=== PATIENT | male | born 2000 ===

== ENCOUNTER 2023-04-03 11:33 | Outpatient (AMB) | payer OTHER, MEDICAID, SELFPAY ==
[2023-04-03 11:35] VITALS: BP 131/61; PULSE 93; BMI 31.6
--- NOTE | 2023-04-03 11:35 | A.OFFVIS_ITS ---
Intake Vital Signs 04/03/23 11:35 Height 5 ft 7 in Weight 201 lb 15.095 oz BMI 31.6 BP 131/61 Blood Pressure Location Lt brachial Position Sitting Pulse 93 Intake Visit Reasons: Chronic Constipation Intake Note: Patient presents to in office vsiit today as a new patient for constipation. CC: Patient in the autism spectrum per his mother suffering from constipation since he was about 7 years old. Patient was taking Miralax, but per his mother is no longer working well. She reports noticing patient's abdomen bigger . Patient is non verbal but her mother states that he sometimes look like he is having abdominal pain. She also reports Pt has nausea and occasional vomiting. Denies other GI symptoms. Institution Librarian Required: No Accompanied by: Mother Allergies No Known Allergies Allergy (Verified 04/03/23 11:36) HPI Chronic Constipation HPI Details 22-year-old male here for initial evaluation of chronic constipation. He is referred by [facility]. In [facility]. PMX Autism Acute lymphoblastic leukemia * SURGICAL HISTORY * ALLERGIES: NKDA * LABS: 11/2021 LABS platelets are normal at 253,000 hundred fifty three thousand remainder of the CBC is unremarkable, AST/ALT 59/145 with an alk-phos of 106 and a bilirubin of 0.4, normal sed rate, normal GFR * ULTRASOUND OF THE ABDOMEN 12/2021 Impression -2 GALLBLADDER POLYPS MEASURING UP TO 3 MM. RECOMMEND FOLLOW-UP ULTRASOUND IN 6-12 MONTHS TODAY'S VISIT He is here today with his mother who is his primary workers compensation coordinator. He has suffered CIC since he had chemotherapy for ACL for which he was treated at [facility]. He was on Miralax but it stopped working and he has also failed senna, dulcolax, colace, fiber and lactulose. I will start LInzess 145 and titrate. Also getting XR to evaluate the stool burden and TSH. Mom says he hardly ever passes gas. It is difficult to gauge his discomfort as he is nonverbal but he seems to indicate some discomfort in the abdomen to his mother. He also has a cough that is random. ROV 2 weeks. . [facility] Surgical History History of appendectomy Family History Maternal Grandmother Lung cancer Social History Household Members: Family Household Members Other:: Parents Both parents involved: Yes Alcohol intake: never Patient Tobacco Use Status: Never used Tobacco Review of Systems Const Denies fatigue, Denies fever(s), Denies night sweats, Denies poor appetite and Denies weight loss ENT Reports Normal hearing present, Denies dental pain, Denies dysphagia, Denies hearing loss, Denies mouth pain, Denies odynophagia, Denies throat swelling, Denies tongue swelling and Reports other (Dentition adequate) Card Reports no additional complaints Resp Reports no additional complaints GI Reports abdominal pain, Denies melena, Reports bloating, Denies hematochezia, Reports constipation, Denies GI cramping, Denies dysphagia, Denies excessive flatus, Denies early satiety, Denies heartburn, Denies diarrhea, Reports nausea, Denies odynophagia, Denies vomiting and Denies hematemesis Skin/Breast Denies pruritus, Denies lesions, Denies rash and Denies jaundice Neuro Reports Normal hearing present and Denies Abnormal speech present Endo Denies fatigue Aller/Immun Denies throat swelling and Denies tongue swelling Physical Exam Vital Signs: Last Vital Signs Pulse 93 04/03/23 11:35 BP 131/61 04/03/23 11:35 BMI result Body Mass Index 31.6 Const General: cooperative, no acute distress, well developed and well groomed Nutritional Appearance: well nourished and obese Orientation/consciousness: oriented to person, oriented to place and oriented to time Limitations: No language barrier and other limitations (Autism) HEENT Head: Yes normocephalic and Yes atraumatic Eyes General: appearance normal, both eyes and all related structures Pupils: Equal, round and reactive pupils present Neck Neck: Yes normal visual inspection and Yes no lymphadenopathy Thyroid: Thyroid normal Resp Effort & Inspection: normal respiratory effort and able to speak in complete sentences Auscultation: clear to auscultation bilaterally Cardio Rate: regular rate Rhythm: regular rhythm Heart sounds: Normal, physiologic split S2 sound present Peripheral pulses: radial pulses present and posterior tibial pulses present GI Inspection: Yes distended, No Abdominal panniculus present and Yes obesity Palpation (GI): Soft to palpation, nontender, no guarding, not rigid and No hepatosplenomegaly present Percussion: Yes normal to percussion Auscultation: normal bowel sounds Rectal Exam - Male: Yes deferred Skin General skin exam: no rashes or lesions noted, turgor normal, skin not dry, no jaundice, No spider nevi and no striae Rashes: no rashes Nails: normal Neuro General: oriented to person, oriented to place and oriented to time Cranial nerves: Yes Equal, round and reactive pupils present and Yes Normal hearing present Speech: No Abnormal speech present Extrem General: Yes normal to inspection, No clubbing, No cyanosis and No edema Psych Appearance: grossly normal and well kempt Mental Status: other Speech and movement: Mute speech present Affect: normal affect Attitude: cooperative Thought content: other Insight: Limited insight present (Psych) Judgement: Limited judgement present (Psych) Assessment & Plan Assessment & Plan (1) Chronic idiopathic constipation: Code(s): K59.04 - Chronic idiopathic constipation Plan: He is here today with his mother who is his primary workers compensation coordinator. He has suffered CIC since he had chemotherapy for ACL for which he was treated at [facility]. He was on Miralax but it stopped working and he has also failed senna, dulcolax, colace, fiber and lactulose. I will start LInzess 145 and titrate. Also getting XR to evaluate the stool burden and TSH. Mom says he hardly ever passes gas. It is difficult to gauge his discomfort as he is nonverbal but he seems to indicate some discomfort in the abdomen to his mother. He also has a cough that is random. ROV 2 weeks. (2) Autism: Code(s): F84.0 - Autistic disorder Orders: Orders XR abdomen w decubitus 04/03/23 K59.04 - Chronic idiopathic constipation TSH reflex Free T4 04/03/23 K59.04 - Chronic idiopathic constipation Medications: New linaclotide (Linzess) 145 mcg PO QAM 30 caps 3RF F84.0 - Autistic disorder Coding Level of Care Code New Pt Level 3 (24640) Diagnoses Chronic idiopathic constipation K59.04 Autism F84.0
== END 2023-04-03 12:45 | disposition home or self-care (01) ==
PROVIDERS: PCP Pediatrics; Visit Provider Nurse Practitioner
DX: K59.04 Chronic idiopathic constipation (principal); F84.0 Autistic disorder
CPT/HCPCS: 99203

== ENCOUNTER 2023-04-03 11:33 | Outpatient (REF) | payer OTHER, MEDICAID, SELFPAY ==
--- NOTE | ~2023-04-03 | XR_ITS ---
EXAMINATION: XR ABDOMEN WITH DECUBITUS VIEWS CLINICAL INDICATION: Chronic idiopathic constipation. 13 COMPARISON: None available. TECHNIQUE: 4 views FINDINGS: Moderate fecal retention. 6 mm calcification identified in the region of the left renal upper pole. 2 adjacent calcifications measuring 7 mm in aggregate are identified in the region of the left renal lower pole. Solid visceral outlines within normal limits. Lung bases are clear. XR/XR abdomen w decubitus IMPRESSION: Moderate fecal retention. Likely left renal calcifications.
== END 2023-04-03 11:34 | disposition home or self-care (01) ==
LOC: HO.XRAY 11:33
PROVIDERS: PCP Pediatrics; Visit Provider Nurse Practitioner
DX: K59.04 Chronic idiopathic constipation (principal); F84.0 Autistic disorder
CPT/HCPCS: 74021

== ENCOUNTER 2023-04-17 15:56 | Outpatient (AMB) | payer OTHER, MEDICAID, SELFPAY ==
--- NOTE | 2023-04-17 16:01 | MHC.OFFVIS ---
Intake Vital Signs 04/17/23 16:02 Height 5 ft 7 in Weight 198 lb 6.656 oz BMI 31.1 BP 120/56 L Blood Pressure Location Rt brachial Position Sitting Pulse 92 Intake Visit Reasons: 2 week fu Intake Note: Patient presents to in office vsiit today in follow up of constipation CC: Patient in the autism spectrum non verbal per his mother suffering from constipation since he was about 7 years old. Patient's mother reports that patient has been taking the Linzess and is now having BMs every day and his abdoen seems smaller. Denies any new GI symptoms. Histological Illustrator Required: No Accompanied by: Mother Allergies No Known Allergies Allergy (Verified 04/03/23 11:36) HPI 2 week fu HPI Details He has suffered CIC since he had chemotherapy for ACL for which he was treated at [facility]. He was on Miralax but it stopped working and he has also failed senna, dulcolax, colace, fiber and lactulose. I will start LInzess 145 and titrate. Also getting XR to eval stool burden and TSH. Mom says he hardly ever passes gas. ITis difficult to gauge his discomfort as he is nonverbal but he seems to indicate some discomfort in erika abd to his mother. He also has a cough taht is random. ROV 2 weeks.? ? Assessment & Plan (1) Chronic idiopathic constipation: ?Code(s): K59.04 - Chronic idiopathic constipation (2) Autism: ?Code(s): F84.0 - Autistic disorder ? ? ? Orders: Orders XR abdomen w decub itus Today K59.04 - Chronic i diopathic constipa tion ? TSH reflex Free T4 Today K59.04 - Chronic i diopathic constipa tion ? Medications: New linaclotide (Linze ss) 145 mcg? PO QAM 30 caps 3RF F84.0 - Autistic d isorder ? LABS Thyroid screening not obtained XR ABD 04/10/23 FINDINGS: Moderate fecal retention. 6 mm calcification identified in the region of the left renal upper pole. 2 adjacent calcifications measuring 7 mm in aggregate are identified in the region of the left renal lower pole. Solid visceral outlines within normal limits. Lung bases are clear. XR/XR abdomen w decubitus IMPRESSION: Moderate fecal retention. Likely left renal calcifications. TODAY'S VISIT Her mother feels that the LInzess at the 145mcg Dose is adequate and she says his mood swings are less often and he is sleeping better. Since he has advanced autism, this sounds good. She has trouble getting to see all of his BM's before he flushes, but what she has seen has been on medium consistency. With this we will hold at this dose for now. They did not get the TSH test, but we can hold on this for now. ROV 2 mos. PFSH Surgical History History of appendectomy Family History Maternal Grandmother Lung cancer Social History Household Members: Family Household Members Other:: Parents Both parents involved: Yes Alcohol intake: never Patient Tobacco Use Status: Never used Tobacco Review of Systems Const Denies fatigue, Denies fever(s), Denies night sweats, Denies poor appetite and Denies weight loss ENT Reports Normal hearing present, Denies dental pain, Denies dysphagia, Denies hearing loss, Denies mouth pain, Denies odynophagia, Denies throat swelling, Denies tongue swelling and Reports other (Dentition adequate) Card Reports no additional complaints Resp Reports no additional complaints GI Denies abdominal pain, Denies melena, Reports bloating, Denies hematochezia, Reports constipation, Denies GI cramping, Denies dysphagia, Denies excessive flatus, Denies early satiety, Denies heartburn, Denies diarrhea, Denies nausea, Denies odynophagia, Denies vomiting and Denies hematemesis Skin/Breast Denies pruritus, Denies lesions, Denies rash and Denies jaundice Neuro Reports Normal hearing present and Denies Abnormal speech present Endo Denies fatigue Aller/Immun Denies throat swelling and Denies tongue swelling Physical Exam Vital Signs: Last Vital Signs Pulse 92 04/17/23 16:02 BP 120/56 L 04/17/23 16:02 BMI result Body Mass Index 31.1 Const General: cooperative, no acute distress, well developed and well groomed Nutritional Appearance: well nourished and obese Orientation/consciousness: oriented to person, oriented to place and oriented to time Limitations: behavioral limitations, No language barrier and other limitations HEENT Head: Yes normocephalic and Yes atraumatic Eyes General: appearance normal, both eyes and all related structures Pupils: Equal, round and reactive pupils present Neck Neck: Yes normal visual inspection and Yes no lymphadenopathy Thyroid: Thyroid normal Resp Effort & Inspection: normal respiratory effort and able to speak in complete sentences Auscultation: clear to auscultation bilaterally Cardio Rate: regular rate Rhythm: regular rhythm Heart sounds: Normal, physiologic split S2 sound present Peripheral pulses: radial pulses present and posterior tibial pulses present GI Inspection: No distended, No Abdominal panniculus present and Yes obesity Palpation (GI): Soft to palpation, nontender, no guarding, not rigid and No hepatosplenomegaly present Percussion: Yes normal to percussion Auscultation: normal bowel sounds Rectal Exam - Male: Yes deferred Skin General skin exam: no rashes or lesions noted, turgor normal, skin not dry, no jaundice, No spider nevi and no striae Rashes: no rashes Nails: normal Neuro General: oriented to person, oriented to place and oriented to time Cranial nerves: Yes Equal, round and reactive pupils present and Yes Normal hearing present Speech: No Abnormal speech present Extrem General: Yes normal to inspection, No clubbing, No cyanosis and No edema Psych Appearance: grossly normal and well kempt Mental Status: mental status grossly normal Speech and movement: Normal speech and movement present Affect: normal affect Attitude: cooperative Thought process: Normal thought process present and not confabulating Thought content: Normal thought content present Insight: Limited insight present (Psych) Judgement: Limited judgement present (Psych) Results Reviewed Results Reviewed: LABS Thyroid screening not obtained XR ABD 04/10/23 FINDINGS: Moderate fecal retention. 6 mm calcification identified in the region of the left renal upper pole. 2 adjacent calcifications measuring 7 mm in aggregate are identified in the region of the left renal lower pole. Solid visceral outlines within normal limits. Lung bases are clear. XR/XR abdomen w decubitus IMPRESSION: Moderate fecal retention. Likely left renal calcifications. Assessment & Plan Assessment & Plan (1) Chronic idiopathic constipation: Code(s): K59.04 - Chronic idiopathic constipation Plan: Her mother feels that the LInzess at the 145mcg Dose is adequate and she says his mood swings are less often and he is sleeping better. Since he has advanced autism, this sounds good. She has trouble getting to see all of his BM's before he flushes, but what she has seen has been on medium consistency. With this we will hold at this dose for now. They did not get the TSH test, but we can hold on this for now. ROV 2 mos. Coding Level of Care Code Est Pt Level 3 (27608) Diagnoses Chronic idiopathic constipation K59.04
[2023-04-17 16:02] VITALS: BP 120/56; PULSE 92; BMI 31.1
== END 2023-04-17 16:24 | disposition home or self-care (01) ==
PROVIDERS: PCP Pediatrics; Visit Provider Nurse Practitioner
DX: K59.04 Chronic idiopathic constipation (principal)
CPT/HCPCS: 99213

== ENCOUNTER → 2023-04-17 15:56 | Outpatient (BNVA) | payer OTHER, MEDICAID, SELFPAY | PROVIDERS: PCP Pediatrics; Visit Provider Nurse Practitioner ==

== ENCOUNTER 2023-06-16 15:41 | Outpatient (AMB) | payer OTHER, MEDICAID, SELFPAY ==
--- NOTE | 2023-06-16 15:43 | MHC.OFFVIS ---
Intake Vital Signs 06/16/23 15:44 Height 57 ft Weight 198 lb 13.711 oz BMI 0.3 BP 121/57 L Blood Pressure Location Rt brachial Position Sitting Pulse 88 Intake Visit Reasons: 2 month follow up Intake Note: Patient presents to in office visit today in 2 months follow up of constipation. CC: Patient in the autism spectrum non verbal. Per his mother his abdomen feels hard sometimes. She also reports he sometimes he goes to the [facility] to have a BM but comes out too fast. Washroom Cleaner Required: No Accompanied by: Mother Allergies No Known Allergies Allergy (Verified 06/16/23 15:47) HPI 2 month follow up HPI Details Assessment & Plan (1) Chronic idiopathic constipation: Code(s): K59.04 - Chronic idiopathic constipation Plan: Her mother feels that the LInzess at the 145mcg Dose is adequate and she says his mood swings are less often and he is sleeping better. Since he has advanced autism, this sounds good. She has trouble getting to see all of his BM's before he flushes, but what she has seen has been on medium consistency. With this we will hold at this dose for now. They did not get the TSH test, but we can hold on this for now. ROV 2 mos. TODAY'S VISIT He is here today with his mother who is the main caregiver. He has been a little more constipated since starting school, but still he is much better than he was before started seeing me. This could be because his routine has been upset and he is not drinking as much fluid or he is less willing to use the bathroom while he is at school. Either way I suggest that we just monitor the situation for a while before deciding if it does crease or change in the medication is needed. For now he continues on his Linzess 145 micro g daily. Return office visit in 3 months. [facility] Surgical History History of appendectomy Family History Maternal Grandmother Lung cancer Social History Household Members: Family Household Members Other:: Parents Both parents involved: Yes Alcohol intake: never Patient Tobacco Use Status: Never used Tobacco Review of Systems Const Denies fatigue, Denies fever(s), Denies night sweats, Denies poor appetite and Denies weight loss ENT Reports Normal hearing present, Denies dental pain, Denies dysphagia, Denies hearing loss, Denies mouth pain, Denies odynophagia, Denies throat swelling, Denies tongue swelling and Reports other (Dentition adequate) Card Reports no additional complaints Resp Reports no additional complaints GI Denies abdominal pain, Denies melena, Denies bloating, Denies hematochezia, Reports constipation, Denies GI cramping, Denies dysphagia, Denies excessive flatus, Denies early satiety, Denies heartburn, Denies diarrhea, Denies nausea, Denies odynophagia, Denies vomiting and Denies hematemesis Skin/Breast Denies pruritus, Denies lesions, Denies rash and Denies jaundice Neuro Reports Normal hearing present and Denies Abnormal speech present Endo Denies fatigue Aller/Immun Denies throat swelling and Denies tongue swelling Physical Exam Vital Signs: Last Vital Signs Pulse 88 06/16/23 15:44 BP 121/57 L 06/16/23 15:44 BMI result Body Mass Index 0.3 Const General: cooperative, no acute distress, well developed and well groomed Nutritional Appearance: average body habitus and well nourished Orientation/consciousness: oriented to person, oriented to place and oriented to time Limitations: No language barrier and other limitations HEENT Head: Yes normocephalic and Yes atraumatic Eyes General: appearance normal, both eyes and all related structures Pupils: Equal, round and reactive pupils present Neck Neck: Yes normal visual inspection and Yes no lymphadenopathy Thyroid: Thyroid normal Resp Effort & Inspection: normal respiratory effort and able to speak in complete sentences Auscultation: clear to auscultation bilaterally Cardio Rate: regular rate Rhythm: regular rhythm Heart sounds: Normal, physiologic split S2 sound present Peripheral pulses: radial pulses present and posterior tibial pulses present GI Inspection: No distended and No Abdominal panniculus present Palpation (GI): Soft to palpation, nontender, no guarding, not rigid and No hepatosplenomegaly present Percussion: Yes normal to percussion Auscultation: normal bowel sounds Rectal Exam - Male: Yes deferred Skin General skin exam: no rashes or lesions noted, turgor normal, skin not dry, no jaundice, No spider nevi and no striae Rashes: no rashes Nails: normal Neuro General: oriented to person, oriented to place and oriented to time Cranial nerves: Yes Equal, round and reactive pupils present and Yes Normal hearing present Speech: No Abnormal speech present Extrem General: Yes normal to inspection, No clubbing, No cyanosis and No edema Psych Appearance: grossly normal and well kempt Mental Status: other Speech and movement: Normal speech and movement present Affect: normal affect Attitude: cooperative Thought process: not confabulating and Other thought process findings present Thought content: Normal thought content present Insight: Limited insight present (Psych) Judgement: Limited judgement present (Psych) Assessment & Plan Assessment & Plan (1) Chronic idiopathic constipation: Code(s): K59.04 - Chronic idiopathic constipation Plan: He is here today with his mother who is the main caregiver. He has been a little more constipated since starting school, but still he is much better than he was before started seeing me. This could be because his routine has been upset and he is not drinking as much fluid or he is less willing to use the bathroom while he is at school. Either way I suggest that we just monitor the situation for a while before deciding if it does crease or change in the medication is needed. For now he continues on his Linzess 145 micro g daily. Return office visit in 3 months. (2) Autism: Code(s): F84.0 - Autistic disorder Medications: Refilled linaclotide (Linzess) 145 mcg PO QAM 30 caps 6RF F84.0 - Autistic disorder Coding Level of Care Code Est Pt Level 3 (36939) Diagnoses Chronic idiopathic constipation K59.04 Autism F84.0
[2023-06-16 15:44] VITALS: BP 121/57; PULSE 88
== END 2023-06-16 16:07 | disposition home or self-care (01) ==
PROVIDERS: PCP Pediatrics; Visit Provider Nurse Practitioner
DX: K59.04 Chronic idiopathic constipation (principal); F84.0 Autistic disorder
CPT/HCPCS: 99213

== ENCOUNTER → 2023-06-16 15:41 | Outpatient (BNVA) | payer OTHER, MEDICAID, SELFPAY | PROVIDERS: PCP Pediatrics; Visit Provider Nurse Practitioner ==

== ENCOUNTER 2023-09-16 15:40 | Outpatient (AMB) | payer OTHER, MEDICAID, SELFPAY ==
--- NOTE | 2023-09-16 15:42 | A.OFFVIS_ITS ---
Intake Vital Signs 09/16/23 15:46 Height 5 ft 7 in Weight 202 lb 6.15 oz BMI 31.7 BP 130/62 Blood Pressure Location Lt brachial Position Sitting Pulse 102 H Intake Visit Reasons: 3 month follow up CIC Intake Note: Patient presents to in office visit today in 3 months follow up of CIC. CC: Patient's mother reports that he has been taking his medications and he sometimes has 2 small BMs daily. She states he sometimes point to his abdomen and she is unsure if he is having abdominal discomfort. She also reports she can tell when the patient is backed up because he does not eat his food as fast as usual. Sr. Vendor Management Associate Required: No Accompanied by: Mother Allergies No Known Allergies Allergy (Verified 09/16/23 15:51) HPI 3 month follow up CIC HPI Details Assessment & Plan (1) Chronic idiopathic constipation: Code(s): K59.04 - Chronic idiopathic constipation Plan: He is here today with his mother who is the main caregiver. He has been a little more constipated since starting school, but still he is much better than he was before started seeing me. This could be because his routine has been upset and he is not drinking as much fluid or he is less willing to use the bathroom while he is at school. Either way I suggest that we just monitor the situation for a while before deciding if it does crease or change in the me dication is needed. For now he continues on his Linzess 145 micro g daily. Return office visit in 3 months. (2) Autism: Code(s): F84.0 - Autistic disorder Medications: Refilled linaclotide (Linze ss) 145 mcg PO QAM 30 caps 6RF F84.0 - Autistic d isorder . TODAY'S VISIT He continues to do well on the Linzess 145mg. No longer taking the bisacodyl. On HCTZ, but not yet taking clonidine as his mother was afraid he would get addicted. Educated her that it is a HTN medicine with grogginess that is sometimes used off label for this, but is not addicted. She has questions regarding Frandy not losing weight, and we discuss that more vigorous exercise may be needed. He will be needed an adult PCP soon, as he is followed by pediatrics and the cancer center at [facility] right now. ROV 6 mos. [facility] Surgical History History of appendectomy Family History Maternal Grandmother Lung cancer Social History Household Members: Family Household Members Other:: Parents Both parents involved: Yes Alcohol intake: never Patient Tobacco Use Status: Never used Tobacco Review of Systems Const Denies fatigue, Denies fever(s), Denies night sweats, Denies poor appetite and Denies weight loss ENT Reports Normal hearing present, Denies dental pain, Denies dysphagia, Denies hearing loss, Denies mouth pain, Denies odynophagia, Denies throat swelling, Denies tongue swelling and Reports other (Dentition adequate) Card Reports no additional complaints Resp Reports no additional complaints GI Denies abdominal pain, Denies melena, Denies bloating, Denies hematochezia, Reports constipation, Denies GI cramping, Denies dysphagia, Denies excessive flatus, Denies early satiety, Denies heartburn, Denies diarrhea, Denies nausea, Denies odynophagia, Denies vomiting and Denies hematemesis Skin/Breast Denies pruritus, Denies lesions, Denies rash and Denies jaundice Neuro Reports Normal hearing present and Denies Abnormal speech present Endo Denies fatigue Aller/Immun Denies throat swelling and Denies tongue swelling Physical Exam Vital Signs: Last Vital Signs Pulse 102 H 09/16/23 15:46 BP 130/62 09/16/23 15:46 BMI result Body Mass Index 31.7 Const General: cooperative, no acute distress, well developed and well groomed Nutritional Appearance: well nourished and obese Orientation/consciousness: oriented to person, oriented to place and oriented to time Limitations: No language barrier and other limitations (Autism) HEENT Head: Yes normocephalic and Yes atraumatic Eyes General: appearance normal, both eyes and all related structures Pupils: Equal, round and reactive pupils present Neck Neck: Yes normal visual inspection and Yes no lymphadenopathy Thyroid: Thyroid normal Resp Effort & Inspection: normal respiratory effort and able to speak in complete sentences Auscultation: clear to auscultation bilaterally Cardio Rate: regular rate Rhythm: regular rhythm Heart sounds: Normal, physiologic split S2 sound present Peripheral pulses: radial pulses present and posterior tibial pulses present GI Inspection: No distended, No Abdominal panniculus present and Yes obesity Palpation (GI): Soft to palpation, nontender, no guarding, not rigid and No hepatosplenomegaly present Percussion: Yes normal to percussion Auscultation: normal bowel sounds Rectal Exam - Male: Yes deferred Skin General skin exam: no rashes or lesions noted, turgor normal, skin not dry, no jaundice, No spider nevi and no striae Rashes: no rashes Nails: normal Neuro General: oriented to person, oriented to place and oriented to time Cranial nerves: Yes Equal, round and reactive pupils present and Yes Normal hearing present Speech: No Abnormal speech present Extrem General: Yes normal to inspection, No clubbing, No cyanosis and No edema Psych Appearance: grossly normal and well kempt Mental Status: mental status grossly normal Speech and movement: Normal speech and movement present Affect: normal affect Attitude: cooperative Thought process: Normal thought process present and not confabulating Thought content: Normal thought content present Insight: Limited insight present (Psych) Judgement: Limited judgement present (Psych) Assessment & Plan Assessment & Plan (1) Chronic idiopathic constipation: Code(s): K59.04 - Chronic idiopathic constipation (2) Autism: Code(s): F84.0 - Autistic disorder Plan He continues to do well on the Linzess 145mg. No longer taking the bisacodyl. On HCTZ, but not yet taking clonidine as his mother was afraid he would get addicted. Educated her that it is a HTN medicine with grogginess that is sometimes used off label for this, but is not addicted. She has questions regarding Frandy not losing weight, and we discuss that more vigorous exercise may be needed. He will be needed an adult PCP soon, as he is followed by pediatrics and the cancer center at [facility] right now. ROV 6 mos. Medications: Refilled linaclotide (Linzess) 145 mcg PO QAM 30 caps 6RF F84.0 - Autistic disorder Coding Level of Care Code Est Pt Level 3 (15818) Diagnoses Chronic idiopathic constipation K59.04 Autism F84.0
[2023-09-16 15:46] VITALS: BP 130/62; PULSE 102; BMI 31.7
== END 2023-09-16 16:16 | disposition home or self-care (01) ==
PROVIDERS: PCP Pediatrics; Visit Provider Nurse Practitioner
DX: K59.04 Chronic idiopathic constipation (principal); F84.0 Autistic disorder
CPT/HCPCS: 99213

== ENCOUNTER → 2023-09-16 15:40 | Outpatient (BNVA) | payer OTHER, MEDICAID, SELFPAY | PROVIDERS: PCP Pediatrics; Visit Provider Nurse Practitioner ==

== ENCOUNTER 2024-03-30 15:36 | Outpatient (AMB) | payer OTHER, MEDICAID, SELFPAY ==
[2024-03-30 15:43] VITALS: BMI 31.3
--- NOTE | 2024-03-30 15:43 | A.OFFVIS_ITS ---
Vital Signs 03/30/24 15:43 Height 5 ft 7 in Weight 200 lb 2.876 oz BMI 31.3 Intake Visit Reasons: 6 months follow up. Intake Note: Frandy returns in office today in follow up of constipation. CC: Patient's mother states that the patient was not been himself and complaining about abd pain. Patient also was having constipation and his mother took him to his PCP and he was started on Miralax, Senna, and Colace. Glass Sander Belt Required: No Allergies No Known Allergies Allergy (Verified 03/30/24 15:50) Medication List - Last Reconciled 03/30/24 by LUANNE Schwartz docusate sodium (Colace) 100 mg PO DAILY hydrochlorothiazide mg PO linaclotide (Linzess) 290 mcg PO QAM 30 days polyethylene glycol 3350 (Gavilax) 17 grams PO DAILY sennosides (senna) 17.2 mg PO BEDTIME HPI HPI 6 months follow up.: Details: Assessment & Plan (1) Chronic idiopathic constipation: Code(s): K59.04 - Chronic idiopathic constipation (2) Autism: Code(s): F84.0 - Autistic disorder Plan He continues to do well on the Linzess 145mg. No longer taking the bisacodyl. On HCTZ, but not yet taking clonidine as his mother was afraid he would get addicted. Educated her that it is a HTN medicine with grogginess that is sometimes used off label for this, but is not addicted. She has questions regarding Frandy not losing weight, and we discuss that more vigorous exercise may be needed. He will be needed an adult PCP soon, as he is followed by pediatrics and the cancer center at [facility] right now. ROV 6 mos. Medications: Refilled linaclotide (Linzess) 145 mcg PO QAM 30 caps 6RF F84.0 - Autistic disorder TODAY'S VISIT He is here today with his mother who is his primary motorcycle fabricator related to his autism His mom tells me that he had an incident where he was complaining of his stomach and he became very bloated. They present to the primary care provider and an x- ray is obtained showing that he was quite constipated. Along with the Linzess 145 micro g they added MiraLax and senna. With this he had a very large bowel movement. I think we need to increase his Linzess to 290 micro g. The looking for new primary care provider because [facility] is going out of business! I did recommend the PA in our current primary care practice here [place]. Return office visit in 6 weeks [facility] Surgical History History of appendectomy Family History Maternal Grandmother Lung cancer Social History Household Members: Family Household Members Other:: Parents Both parents involved: Yes Alcohol intake: never Patient Tobacco Use Status: Never used Tobacco Review of Systems Const Denies fatigue, Denies fever(s), Denies night sweats, Denies poor appetite and Denies weight loss ENT Reports Normal hearing present, Denies dental pain, Denies dysphagia, Denies hearing loss, Denies mouth pain, Denies odynophagia, Denies throat swelling, Denies tongue swelling and Reports other (Dentition adequate) Card Reports no additional complaints Resp Reports no additional complaints GI Details: Denies abdominal pain, Denies melena, Denies bloating, Denies hematochezia, Reports constipation, Denies GI cramping, Denies dysphagia, Denies excessive flatus, Denies early satiety, Denies heartburn, Denies diarrhea, Denies nausea, Denies odynophagia, Denies vomiting and Denies hematemesis Skin/Breast Denies pruritus, Denies lesions, Denies rash and Denies jaundice Neuro Reports Normal hearing present and Denies Abnormal speech present Endo Denies fatigue Aller/Immun Denies throat swelling and Denies tongue swelling Physical Exam Vital Signs: BMI result Body Mass Index 31.3 Const General: cooperative, no acute distress, well developed and well groomed Nutritional Appearance: well nourished and obese Orientation/consciousness: oriented to person, oriented to place and oriented to time Limitations: language barrier and other limitations HEENT Head: Yes normocephalic and Yes atraumatic Eyes General: appearance normal, both eyes and all related structures Pupils: Equal, round and reactive pupils present Neck Neck: Yes normal visual inspection and Yes no lymphadenopathy Thyroid: Thyroid normal Resp Effort & Inspection: normal respiratory effort and able to speak in complete sentences Auscultation: clear to auscultation bilaterally Cardio Rate: regular rate Rhythm: regular rhythm Heart sounds: Normal, physiologic split S2 sound present Peripheral pulses: radial pulses present and posterior tibial pulses present GI Inspection: No distended, No Abdominal panniculus present and Yes obesity Palpation (GI): Soft to palpation, nontender, no guarding, not rigid and No hepatosplenomegaly present Percussion: Yes normal to percussion Auscultation: normal bowel sounds Rectal Exam - Male: Yes deferred Skin General skin exam: no rashes or lesions noted, turgor normal, skin not dry, no jaundice, No spider nevi and no striae Rashes: no rashes Nails: normal Neuro General: oriented to person, oriented to place and oriented to time Cranial nerves: Yes Equal, round and reactive pupils present and Yes Normal hearing present Speech: No Abnormal speech present Extrem General: Yes normal to inspection, No clubbing, No cyanosis and No edema Psych Appearance: grossly normal and well kempt Mental Status: other Speech and movement: Normal speech and movement present Affect: normal affect Attitude: cooperative Thought process: not confabulating and Other thought process findings present Thought content: Normal thought content present Insight: Poor insight present (Psych) Judgement: Poor judgement present (Psych) Assessment & Plan Assessment & Plan (1) Chronic idiopathic constipation: Code(s): K59.04 - Chronic idiopathic constipation Category: Medical Plan He is here today with his mother who is his primary motorcycle fabricator related to his autism His mom tells me that he had an incident where he was complaining of his stomach and he became very bloated. They present to the primary care provider and an x- ray is obtained showing that he was quite constipated. Along with the Linzess 145 micro g they added MiraLax and senna. With this he had a very large bowel movement. I think we need to increase his Linzess to 290 micro g. The looking for new primary care provider because [facility] is going out of business! I did recommend the PA in our current primary care practice here [place]. Return office visit in 6 weeks Medications: New linaclotide (Linzess) 290 mcg PO QAM 30 caps 6RF 30 days K59.04 - Chronic idiopathic constipation Discontinued linaclotide (Linzess) Discontinued Reason: Doctor's Order 145 mcg PO QAM 30 caps 6RF F84.0 - Autistic disorder Coding Level of Care Code Est Pt Level 3 (37017) Diagnoses Chronic idiopathic constipation K59.04
== END 2024-03-30 16:01 | disposition home or self-care (01) ==
PROVIDERS: PCP Pediatrics; Visit Provider Nurse Practitioner
DX: K59.04 Chronic idiopathic constipation (principal)
CPT/HCPCS: 99213

== ENCOUNTER → 2024-03-30 15:36 | Outpatient (BNVA) | payer OTHER, MEDICAID, SELFPAY | PROVIDERS: PCP Pediatrics; Visit Provider Nurse Practitioner ==